=== PATIENT | female | born 1955 | race Caucasian/White ===

== ENCOUNTER 2017-10-27 12:08 | Inpatient (IN) | payer MEDICARE, MEDICAID ==
[~2017-10-27] VITALS: Ht 162.6 cm; Wt 66.8 kg
[~2017-10-27 12:08] MED LIST: ALBU8HFA PO; ALPR-624 PO; ARIP15TA3 PO; ATOR40TA PO; BUDE10.23 IH; BUPR150T8 PO; CETI-1 PO; CHOL100010 PO; CLON-527 PO; CYCL-1 PO; FLUO10CA66 PO; FURO40TA4 PO; GUAI120L55 PO; HYDR-565 PO; HYDR-569 PO; LEVO88TA28 PO; NICO-669 BC; NICO-687 TD; ONDA4TAB12 PO; ONDA4TAB6 PO; POTA20PA3 PO; QUET400T PO; RES15C PO; TRAZ-91 PO; [UNRECOGNIZED DRUG - CODE] PO; [UNRECOGNIZED DRUG - CODE] PO
[2017-10-27] MEDS ORDERED: pantoprazole IV 80 MG in normal saline 100ml IV soln 100 ML IV ONE (12:40)
[2017-10-27] MEDS ORDERED: normal saline 1000ML IV soln IV ONE (12:40)
[2017-10-27 12:53] LABS: BASOPHILS % (AUTO) 0.1 % (0-1); EOSINOPHILS # (AUTO) 0.1 X10'3 (0-0.9); EOSINOPHILS % (AUTO) 0.9 % (0-6); HEMATOCRIT 34.9 % (35.0-45.0); HEMOGLOBIN 11.7 g/dl (12.0-16.0); LYMPHOCYTES # (AUTO) 0.5 X10'3 (1.1-4.8); LYMPHOCYTES % (AUTO) 3.5 % (21-51); MEAN CORPUSCULAR HEMOGLOBIN 29.7 PG (27.0-31.0); MEAN CORPUSCULAR HGB CONC 33.5 % (33.0-36.5); MEAN CORPUSCULAR VOLUME 88.7 FL (78-98); MEAN PLATELET VOLUME 7.3 FL (7.4-10.4); MONOCYTES # (AUTO) 1.4 X10'3 (0-0.9); MONOCYTES % (AUTO) 10.6 % (2-12); NEUTROPHILS # (AUTO) 11.5 X10'3 (1.8-7.7); NEUTROPHILS % (AUTO) 84.9 % (42-75); PLATELET COUNT 167 X10'3 (140-440); RED BLOOD COUNT 3.94 X10'6 (4.20-5.60); RED CELL DISTRIBUTION WIDTH 13.8 % (11.5-14.5); WHITE BLOOD COUNT 13.6 X10'3 (4.5-11.0)
[2017-10-27 13:07] LABS: D-DIMER 0.85 MG/L FEU (0-0.50)
[2017-10-27 13:08] LABS: ALANINE AMINOTRANSFERASE 84 U/L (12-78); ALBUMIN 3.3 G/DL (3.4-5.0); ALBUMIN/GLOBULIN RATIO 0.9 (1.1-1.5); ALKALINE PHOSPHATASE 172 IU/L (46-116); ANION GAP 12 (8-16); ASPARTATE AMINO TRANSFERASE 64 U/L (10-37); BILIRUBIN,TOTAL 0.5 MG/DL (0.1-1.0); BLOOD UREA NITROGEN 26 MG/DL (7-18); CALCIUM 8.9 MG/DL (8.5-10.1); CHLORIDE 102 MMOL/L (99-107); GLUCOSE 91 MG/DL (70-104); POTASSIUM 3.8 MMOL/L (3.5-5.1); SODIUM 137 MMOL/L (135-145); TOTAL CARBON DIOXIDE 23.5 MMOL/L (24-32); TOTAL PROTEIN 6.9 G/DL (6.4-8.2); eGFR 41 ML/MIN
[2017-10-27] MEDS ORDERED: iohexol 350MG/ML 100ml bottle IV ONE (13:23)
[2017-10-27 13:29] LABS: ANISOCYTOSIS 1+; MICROCYTOSIS 1+; PLATELET ESTIMATE NORMAL; TOTAL CELLS COUNTED 100
[2017-10-27] MEDS ORDERED: furosemide 10 MG/1 ML 10ml inj IV ONE (13:55)
[2017-10-27 13:59] LABS: ETHANOL < 0.010 GM/DL (0.0-0.010)
[2017-10-27] MEDS ORDERED: guaiFENesin/codeine phos 10ml UD oral syrup PO PRN (14:20)
[2017-10-27] MEDS ORDERED: cyclobenzaprine 10mg tablet PO PRN (14:20)
[2017-10-27] MEDS ORDERED: temazepam 15mg capsule PO PRN (14:20)
[2017-10-27] MEDS ORDERED: acetaminophen 325mg tablet PO PRN (14:25)
[2017-10-27] MEDS ORDERED: magnesium 4gm in 100ml NS 100 ML IV PRN (14:25)
[2017-10-27] MEDS ORDERED: HYDROcodone/acetaminophen 5mg/325mg tablet PO PRN (14:25)
[2017-10-27] MEDS ORDERED: potassium Cl 20 mEq SR tablet PO PRN ×2 (14:25)
[2017-10-27] MEDS ORDERED: potassium Cl 40MEQ/NS 500ml 500 ML IV PRN ×2 (14:25)
[2017-10-27] MEDS ORDERED: magnesium hydroxide 30ml (MOM) UD suspension PO PRN (14:25)
[2017-10-27] MEDS ORDERED: albuterol 2.5 MG/3 ML nebule NEB PRN (14:25)
[2017-10-27] MEDS ORDERED: HYDROcodone/acetaminophen 10/325mg tab PO PRN (14:25)
[2017-10-27] MEDS ORDERED: magnesium 2GM in 50ml NS 50 ML IV PRN (14:25)
[2017-10-27] MEDS ORDERED: mag hydrox/Alum hydrox/simeth 30ml oral suspension PO PRN (14:25)
[2017-10-27] MEDS ORDERED: ondansetron/PF 4mg/2ml inj IV PRN (14:25)
[2017-10-27] MEDS ORDERED: magnesium Cl slow-release 64mg tablet PO PRN (14:25)
[2017-10-27] MEDS: ALPRAZolam 0.5mg tablet PO SCH ×3 (15:01→22:03)
[2017-10-27 17:00] VITALS: BP 92/59
[2017-10-27 18:00] VITALS: BP 91/50
[2017-10-27] MEDS ORDERED: LOPE2CAP PO (18:51)
[2017-10-27] MEDS ORDERED: GABA-532 PO (20:14)
[2017-10-27] MEDS ORDERED: ZONI100C6 PO (20:23)
[2017-10-27] MEDS ORDERED: atorvastatin 20mg tablet PO SCH (21:00)
[2017-10-27] MEDS ORDERED: gabapentin 300mg capsule PO SCH (22:00)
[2017-10-27] MEDS: quetiapine 100mg tablet PO SCH (22:03)
[2017-10-27] MEDS: pantoprazole 40 MG vial IV SCH (22:04)
[2017-10-27] MEDS: zonisamide 100mg capsule PO SCH (22:04)
[2017-10-27] MEDS: methylPREDNISolone sod succ 125mg/2ml vial IV SCH (22:05)
[2017-10-27] MEDS: furosemide 10 MG/1 ML 10ml inj IV SCH (22:08)
[2017-10-28] VITALS: BP 87/52
[2017-10-28 01:00] VITALS: BP 95/60
[2017-10-28] MEDS: methylPREDNISolone sod succ 125mg/2ml vial IV SCH ×2 (02:04→08:00)
[2017-10-28 06:15] LABS: BASOPHILS % (AUTO) 0 % (0-1); EOSINOPHILS % (AUTO) 0 % (0-6); HEMATOCRIT 32.5 % (35.0-45.0); HEMOGLOBIN 10.6 g/dl (12.0-16.0); LYMPHOCYTES # (AUTO) 0.5 X10'3 (1.1-4.8); LYMPHOCYTES % (AUTO) 5.6 % (21-51); MEAN CORPUSCULAR HEMOGLOBIN 29.2 PG (27.0-31.0); MEAN CORPUSCULAR HGB CONC 32.6 % (33.0-36.5); MEAN CORPUSCULAR VOLUME 89.4 FL (78-98); MEAN PLATELET VOLUME 8.1 FL (7.4-10.4); MONOCYTES # (AUTO) 0.1 X10'3 (0-0.9); MONOCYTES % (AUTO) 1.3 % (2-12); NEUTROPHILS % (AUTO) 93.1 % (42-75); PLATELET COUNT 172 X10'3 (140-440); RED BLOOD COUNT 3.64 X10'6 (4.20-5.60); RED CELL DISTRIBUTION WIDTH 14.3 % (11.5-14.5); WHITE BLOOD COUNT 9.7 X10'3 (4.5-11.0)
[2017-10-28 06:29] LABS: ALBUMIN 2.9 G/DL (3.4-5.0); ANION GAP 8 (8-16); BLOOD UREA NITROGEN 19 MG/DL (7-18); BUN/CREATININE RATIO 15.8 (6.6-38.0); CALCIUM 8.1 MG/DL (8.5-10.1); CHLORIDE 105 MMOL/L (99-107); GLUCOSE 172 MG/DL (70-104); MAGNESIUM 1.8 MG/DL (1.5-2.4); POTASSIUM 3.6 MMOL/L (3.5-5.1); SODIUM 139 MMOL/L (135-145); TOTAL CARBON DIOXIDE 25.9 MMOL/L (24-32); eGFR 45 ML/MIN
[2017-10-28 06:55] VITALS: BP 95/61
[2017-10-28] MEDS ORDERED: [UNRECOGNIZED DRUG - OTHER] PO SCH (08:00)
[2017-10-28] MEDS ORDERED: cholecalciferol (vitamin D) 400 unit tablet PO SCH (08:00)
[2017-10-28] MEDS ORDERED: buPROPion SR 150mg tablet PO SCH (08:00)
[2017-10-28] MEDS ORDERED: potassium Cl 20 mEq SR tablet PO SCH (08:00)
[2017-10-28] MEDS ORDERED: cetirizine 10mg tablet PO SCH (08:00)
[2017-10-28] MEDS ORDERED: nicotine 21mg patch - 24 hr TD SCH (08:00)
[2017-10-28] MEDS ORDERED: K and/or MAG REPLACEMENT MC SCH (08:00)
[2017-10-28] MEDS ORDERED: aripiprazole 5mg tablet PO SCH (08:00)
[2017-10-28] MEDS ORDERED: levoTHYROXINE 88mcg tablet PO SCH (08:00)
[2017-10-28] MEDS ORDERED: fluticasone/vilanterol 200mcg/25mcg inhaler IH SCH (08:00)
[2017-10-28] MEDS ORDERED: FLUoxetine 10mg capsule PO SCH (08:00)
[2017-10-28] MEDS ORDERED: traZODone 150mg tablet PO SCH (08:00)
[2017-10-28] MEDS: quetiapine 100mg tablet PO SCH (08:00)
[2017-10-28] MEDS: furosemide 10 MG/1 ML 10ml inj IV SCH (08:05)
[2017-10-28] MEDS: ALPRAZolam 0.5mg tablet PO SCH (08:07)
[2017-10-28] MEDS: pantoprazole 40 MG vial IV SCH (08:10)
[2017-10-28] MEDS: zonisamide 100mg capsule PO SCH (08:17)
[2017-10-28 11:20] VITALS: BP 99/57
[2017-10-28] MEDS ORDERED: PANT-47 PO (12:40)
[2017-10-28 13:14] LABS: OCCULT BLOOD STOOL POSITIVE (Neg)
[2017-11-01] MEDS ORDERED: CEPH-571 PO (12:31)
== END 2017-10-28 13:40 | disposition home or self-care (01) | DRG 378 ==
LOC: ER 12:08 → ED HOLD 14:21 → EDBEDREQ 15:45 → MED 3N 17:02
PROVIDERS: ADMIT Internal Medicine; ATTEND Internal Medicine
PROC: B32T1ZZ Computerized Tomography (CT Scan) of Left Pulmonary Artery using Low Osmolar Contrast (ICD-10-PCS; principal; 2017-10-27)
PROC: B3201ZZ Computerized Tomography (CT Scan) of Thoracic Aorta using Low Osmolar Contrast (ICD-10-PCS; 2017-10-27)
PROC: B32S1ZZ Computerized Tomography (CT Scan) of Right Pulmonary Artery using Low Osmolar Contrast (ICD-10-PCS; 2017-10-27)
DX: K92.2 Gastrointestinal hemorrhage, unspecified (principal); I13.0 Hypertensive heart and chronic kidney disease with heart failure and stage 1 through stage 4 chronic kidney disease, or unspecified chronic kidney disease; Z99.81 Dependence on supplemental oxygen; I50.9 Heart failure, unspecified; J44.1 Chronic obstructive pulmonary disease with (acute) exacerbation; E78.5 Hyperlipidemia, unspecified; E86.0 Dehydration; G89.29 Other chronic pain; M54.9 Dorsalgia, unspecified; F32.9 Major depressive disorder, single episode, unspecified; F41.9 Anxiety disorder, unspecified; I25.10 Atherosclerotic heart disease of native coronary artery without angina pectoris; K58.9 Irritable bowel syndrome, unspecified; N18.9 Chronic kidney disease, unspecified; F17.210 Nicotine dependence, cigarettes, uncomplicated; Z90.710 Acquired absence of both cervix and uterus; Z90.49 Acquired absence of other specified parts of digestive tract; Z95.0 Presence of cardiac pacemaker; Z79.899 Other long term (current) drug therapy; Z88.7 Allergy status to serum and vaccine; Z88.8 Allergy status to other drugs, medicaments and biological substances; Z87.11 Personal history of peptic ulcer disease; Z80.0 Family history of malignant neoplasm of digestive organs
CPT/HCPCS: 36415; 71010; 71275; 80048; 80053; 80320; 82272; 83735; 83880; 84484; 85025; 85379; 87070; 94640; 94760; 96365; 96375; C9113; J1940; J2270; J2930; J7030; Q9967

== ENCOUNTER 2017-12-04 20:14 | Emergency (ER) | payer OTHER, MEDICARE, MEDICAID ==
[~2017-12-04] VITALS: Ht 162.6 cm; Wt 67.3 kg
[~2017-12-04 20:14] MED LIST changes: +CEPH-571 PO; +GABA-532 PO; +LOPE2CAP PO; +PANT-47 PO; +ZONI100C6 PO
[2017-12-04 21:14] LABS: BASOPHILS % (AUTO) 0.3 % (0-1); EOSINOPHILS # (AUTO) 0.2 X10'3 (0-0.9); EOSINOPHILS % (AUTO) 2.4 % (0-6); HEMATOCRIT 43.5 % (35.0-45.0); HEMOGLOBIN 14.5 g/dl (12.0-16.0); LYMPHOCYTES # (AUTO) 1.5 X10'3 (1.1-4.8); LYMPHOCYTES % (AUTO) 16.9 % (21-51); MEAN CORPUSCULAR HEMOGLOBIN 29.7 PG (27.0-31.0); MEAN CORPUSCULAR HGB CONC 33.3 % (33.0-36.5); MEAN CORPUSCULAR VOLUME 89.1 FL (78-98); MEAN PLATELET VOLUME 7.5 FL (7.4-10.4); MONOCYTES # (AUTO) 0.9 X10'3 (0-0.9); MONOCYTES % (AUTO) 9.5 % (2-12); NEUTROPHILS # (AUTO) 6.5 X10'3 (1.8-7.7); NEUTROPHILS % (AUTO) 70.9 % (42-75); PLATELET COUNT 226 X10'3 (140-440); RED BLOOD COUNT 4.88 X10'6 (4.20-5.60); RED CELL DISTRIBUTION WIDTH 14.8 % (11.5-14.5); WHITE BLOOD COUNT 9.1 X10'3 (4.5-11.0)
[2017-12-04] MEDS ORDERED: normal saline 1000ML IV soln IVB ONE (21:20)
[2017-12-04] MEDS ORDERED: mag hydrox/Alum hydrox/simeth 30ml oral suspension PO ONE (21:20)
[2017-12-04] MEDS ORDERED: ondansetron/PF 4mg/2ml inj IV ONE (21:20)
[2017-12-04] MEDS ORDERED: LIDOcaine Viscous 15ml cup PO ONE (21:20)
[2017-12-04 21:24] LABS: PROTHROMBIN TIME 10.3 SECONDS (9.0-12.0)
[2017-12-04 21:29] LABS: ALANINE AMINOTRANSFERASE 19 U/L (12-78); ALBUMIN 3.8 G/DL (3.4-5.0); ALKALINE PHOSPHATASE 114 IU/L (46-116); ANION GAP 11 (8-16); ASPARTATE AMINO TRANSFERASE 15 U/L (10-37); BILIRUBIN,TOTAL 0.4 MG/DL (0.1-1.0); BLOOD UREA NITROGEN 22 MG/DL (7-18); BUN/CREATININE RATIO 16.9 (6.6-38.0); CALCIUM 9.2 MG/DL (8.5-10.1); CHLORIDE 105 MMOL/L (99-107); GLUCOSE 143 MG/DL (70-104); POTASSIUM 4.2 MMOL/L (3.5-5.1); SODIUM 138 MMOL/L (135-145); TOTAL CARBON DIOXIDE 21.6 MMOL/L (24-32); TOTAL PROTEIN 7.5 G/DL (6.4-8.2); eGFR 41 ML/MIN
[2017-12-04] MEDS ORDERED: acetaminophen 325mg tablet PO ONE (21:55)
[2017-12-04] MEDS ORDERED: SUCR1TAB34 PO (22:50)
[2017-12-04 23:02] LABS: TOTAL CELLS COUNTED 100
[2017-12-04 23:03] LABS: PLATELET ESTIMATE NORMAL
[2017-12-04 23:05] VITALS: BP 148/85
== END 2017-12-04 23:06 | disposition home or self-care (01) ==
LOC: ER 20:14
DX: R10.12 Left upper quadrant pain (principal); I25.10 Atherosclerotic heart disease of native coronary artery without angina pectoris; J44.9 Chronic obstructive pulmonary disease, unspecified; G89.29 Other chronic pain; I11.0 Hypertensive heart disease with heart failure; I50.9 Heart failure, unspecified; Z90.710 Acquired absence of both cervix and uterus; Z95.0 Presence of cardiac pacemaker; Z90.49 Acquired absence of other specified parts of digestive tract; Z60.2 Problems related to living alone; Z88.7 Allergy status to serum and vaccine; Z79.899 Other long term (current) drug therapy
CPT/HCPCS: 36415; 80053; 85025; 85610; 96361; 96374; 99284; J2405; J7030

== ENCOUNTER 2021-04-11 11:29 | Emergency (ER) | payer OTHER, MEDICARE, MEDICAID ==
[~2021-04-11] VITALS: Ht 162.6 cm; Wt 66.8 kg
[~2021-04-11 11:29] MED LIST changes: -ARIP15TA3 PO; +ASPI-803 PO; -BUDE10.23 IH; -BUPR150T8 PO; -CEPH-571 PO; -CLON-527 PO; -CYCL-1 PO; +FAMO40TA7 PO; -GABA-532 PO; +GABA-534 PO; -GUAI120L55 PO; -HYDR-565 PO; -HYDR-569 PO; +LEVO75TA PO; -LEVO88TA28 PO; -NICO-669 BC; -NICO-687 TD; -ONDA4TAB6 PO; -PANT-47 PO; -POTA20PA3 PO; +POTA20PA40 PO; -QUET400T PO; +QUET400T12 PO; -RES15C PO; +SUCR1TAB34 PO; -TRAZ-91 PO; +ZONI100C31 PO; -ZONI100C6 PO; -[UNRECOGNIZED DRUG - CODE] PO; -[UNRECOGNIZED DRUG - CODE] PO
[2021-04-11 11:30] VITALS: BP 129/81
[2021-04-11] MEDS ORDERED: DOXY100C43 PO (12:48)
--- NOTE | 2021-04-11 13:03 | NUR ---
PATIENT SEEN AND ASSESSED PER PROVIDER. DC INSTRUCTIONS WITH PRESCRIPTION GIVEN TO PATIENT AND VERBALIZED UNDERSTANDING.
== END 2021-04-11 13:02 | disposition home or self-care (01) ==
LOC: ER 11:29
DX: L03.114 Cellulitis of left upper limb (principal); G40.909 Epilepsy, unspecified, not intractable, without status epilepticus; I25.10 Atherosclerotic heart disease of native coronary artery without angina pectoris; I50.9 Heart failure, unspecified; I11.0 Hypertensive heart disease with heart failure; G89.29 Other chronic pain; J44.9 Chronic obstructive pulmonary disease, unspecified; K21.9 Gastro-esophageal reflux disease without esophagitis; Z87.440 Personal history of urinary (tract) infections; Z90.49 Acquired absence of other specified parts of digestive tract; Z90.710 Acquired absence of both cervix and uterus; Z95.0 Presence of cardiac pacemaker; Z88.7 Allergy status to serum and vaccine; Z88.8 Allergy status to other drugs, medicaments and biological substances; Z79.2 Long term (current) use of antibiotics; Z79.899 Other long term (current) drug therapy; Z79.82 Long term (current) use of aspirin
CPT/HCPCS: 99283

== ENCOUNTER 2021-04-23 09:35 | Emergency (ER) | payer OTHER, MEDICARE, MEDICAID ==
[~2021-04-23] VITALS: Ht 162.6 cm; Wt 68.5 kg
[2021-04-23 09:49] VITALS: BP 127/80
[2021-04-23] MEDS ORDERED: DOXY100C77 PO (10:01)
--- NOTE | 2021-04-23 10:09 | NUR ---
Patient seen and assessed by provider.
== END 2021-04-23 10:09 | disposition home or self-care (01) ==
LOC: ER 09:36
DX: L02.414 Cutaneous abscess of left upper limb (principal); I25.10 Atherosclerotic heart disease of native coronary artery without angina pectoris; I11.0 Hypertensive heart disease with heart failure; I50.9 Heart failure, unspecified; J44.9 Chronic obstructive pulmonary disease, unspecified; F41.9 Anxiety disorder, unspecified; F31.9 Bipolar disorder, unspecified; Z86.69 Personal history of other diseases of the nervous system and sense organs; Z90.49 Acquired absence of other specified parts of digestive tract; Z90.710 Acquired absence of both cervix and uterus; Z95.0 Presence of cardiac pacemaker; Z90.89 Acquired absence of other organs; Z98.890 Other specified postprocedural states; Z60.2 Problems related to living alone; Z88.7 Allergy status to serum and vaccine; Z79.82 Long term (current) use of aspirin; Z79.899 Other long term (current) drug therapy
CPT/HCPCS: 99283

== ENCOUNTER 2023-02-10 13:18 | Emergency (ER) | payer OTHER, MEDICARE, MEDICAID ==
[~2023-02-10] VITALS: Ht 162.6 cm; Wt 58.0 kg
[~2023-02-10 13:18] MED LIST changes: -QUET400T12 PO; +QUET400T13 PO; -ZONI100C31 PO; +ZONI100C87 PO
[2023-02-10] MEDS ORDERED: HYDROcodone/acetaminophen 10/325mg tab PO ONE (14:20)
[2023-02-10] MEDS ORDERED: magnesium hydroxide 30ml (MOM) UD suspension PO ONE (14:30)
[2023-02-10] MEDS ORDERED: HYDR-3973 PO ×3 (15:34→17:12)
[2023-02-10 16:21] VITALS: BP 136/72
[2023-02-10] MEDS ORDERED: mineral oil 133ml enema RC ONE (18:00)
== END 2023-02-10 16:21 | disposition home or self-care (01) ==
LOC: ER 13:19
DX: K59.03 Drug induced constipation (principal); K64.8 Other hemorrhoids; I11.9 Hypertensive heart disease without heart failure; I10 Essential (primary) hypertension; F31.9 Bipolar disorder, unspecified; G89.29 Other chronic pain; M54.9 Dorsalgia, unspecified; J44.9 Chronic obstructive pulmonary disease, unspecified; Z90.49 Acquired absence of other specified parts of digestive tract; Z98.890 Other specified postprocedural states; Z88.8 Allergy status to other drugs, medicaments and biological substances; Z88.6 Allergy status to analgesic agent; Z79.899 Other long term (current) drug therapy; Z79.1 Long term (current) use of non-steroidal anti-inflammatories (NSAID)
CPT/HCPCS: 99284

== ENCOUNTER 2023-02-13 10:41 | Emergency (ER) | payer OTHER, MEDICARE, MEDICAID ==
[~2023-02-13] VITALS: Ht 162.6 cm; Wt 54.5 kg
[~2023-02-13 10:41] MED LIST changes: +HYDR-3973 PO
[2023-02-13] MEDS ORDERED: normal saline 1000ml 1,000 ML IV ONE (12:35)
[2023-02-13 12:59] LABS: CLARITY,URINE CLOUDY (Clear); COLOR,URINE YELLOW (Yellow); GLUCOSE, URINE NEGATIVE (Neg); KETONES,URINE NEGATIVE (Neg); LEUKOCYTE ESTERASE ,URINE NEGATIVE (Neg); NITRITES, URINE NEGATIVE (Neg); OCCULT BLOOD,URINE NEGATIVE (Neg); PROTEIN,URINE NEGATIVE (Neg); UROBILINOGEN,URINE 0.2 E.U/dL (0.2-1.0)
[2023-02-13 13:05] LABS: UA COLLECTION TYPE CLN CATCH MIDSTREAM
[2023-02-13 13:07] LABS: BASOPHILS % (AUTO) 0.4 % (0-1); EOSINOPHILS % (AUTO) 0.1 % (0-6); HEMATOCRIT 30.2 % (35.0-45.0); HEMOGLOBIN 9.7 g/dl (12.0-16.0); LYMPHOCYTES # (AUTO) 1.3 X10'3 (1.1-4.8); LYMPHOCYTES % (AUTO) 18.5 % (21-51); MEAN CORPUSCULAR HEMOGLOBIN 28.4 PG (27.0-31.0); MEAN CORPUSCULAR HGB CONC 32.1 g/dL (33.0-36.5); MEAN CORPUSCULAR VOLUME 88.5 FL (78-98); MEAN PLATELET VOLUME 6.7 FL (7.4-10.4); MONOCYTES # (AUTO) 0.6 X10'3 (0-0.9); MONOCYTES % (AUTO) 8.9 % (2-12); NEUTROPHILS # (AUTO) 5.1 X10'3 (1.8-7.7); NEUTROPHILS % (AUTO) 72.1 % (42-75); PLATELET COUNT 426 X10'3 (140-440); RED BLOOD COUNT 3.41 X10'6 (4.20-5.60); WHITE BLOOD COUNT 7.1 X10'3 (4.5-11.0)
[2023-02-13 13:07] LABS: AMORPHOUS PHOSPHATES 4+
[2023-02-13 13:08] LABS: BACTERIA,URINE FEW /HPF (Neg); RBC,URINE NONE SEEN /HPF (0-2); SQUAMOUS EPITHELIAL CELL,UR FEW /LPF (FEW); WBC,URINE 0-4 /HPF (0-4)
[2023-02-13] MEDS: diatr meglu/diatrizoate 30ml oral sol.-(3 dose) bottle PO SCH ×3 (13:10→14:34)
[2023-02-13 13:24] LABS: URINE AMPHETAMINE SCREEN NEGATIVE (Neg); URINE BARBITUATE SCREEN NEGATIVE (Neg); URINE BENZODIAZEPINES SCREEN POSITIVE (Neg); URINE CANNABINOID SCREEN NEGATIVE (Neg); URINE COCAINE SCREEN NEGATIVE (Neg); URINE METHADONE SCREEN NEGATIVE (Neg); URINE OPIATE SCREEN POSITIVE (Neg); URINE PHENCYCLIDINE SCREEN NEGATIVE (Neg)
[2023-02-13 13:41] LABS: ALANINE AMINOTRANSFERASE 24 U/L (12-78); ALBUMIN 2.8 G/DL (3.4-5.0); ALBUMIN/GLOBULIN RATIO 0.7 (1.1-1.5); ALKALINE PHOSPHATASE 156 IU/L (46-116); ANION GAP 11 (8-16); ASPARTATE AMINO TRANSFERASE 21 U/L (10-37); BILIRUBIN,TOTAL 0.2 MG/DL (0.1-1.0); BLOOD UREA NITROGEN 16 MG/DL (7-18); BUN/CREATININE RATIO 14.8 (10.0-20.0); CALCIUM 8.9 MG/DL (8.5-10.1); CHLORIDE 104 MMOL/L (99-107); CREATININE 1.08 MG/DL (0.40-0.90); GLUCOSE 109 MG/DL (70-104); POTASSIUM 4.3 MMOL/L (3.5-5.1); SODIUM 139 MMOL/L (135-145); TOTAL CARBON DIOXIDE 23.9 MMOL/L (24-32); TOTAL PROTEIN 6.6 G/DL (6.4-8.2); eGFR 50 ML/MIN
[2023-02-13 13:59] LABS: ETHANOL < 0.010 GM/DL (0.0-0.010)
--- NOTE | 2023-02-13 13:59 | NUR ---
advised ct that the 2nd dose of gastrografin was just given
--- NOTE | 2023-02-13 14:40 | NUR ---
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
[2023-02-13] MEDS ORDERED: LORazepam 1 MG tablet PO ONE (16:20)
[2023-02-13] MEDS ORDERED: methylnaltrexone br 12mg/0.6ml inj***SubQ only SQ ONE (16:20)
[2023-02-13] MEDS ORDERED: POLY119P2 PO (16:23)
[2023-02-13 16:55] VITALS: BP 156/96
== END 2023-02-13 16:58 | disposition home or self-care (01) ==
LOC: ER 10:42
DX: K62.3 Rectal prolapse (principal); K59.00 Constipation, unspecified; I25.10 Atherosclerotic heart disease of native coronary artery without angina pectoris; I11.0 Hypertensive heart disease with heart failure; I50.9 Heart failure, unspecified; J44.9 Chronic obstructive pulmonary disease, unspecified; G89.29 Other chronic pain; F41.9 Anxiety disorder, unspecified; F31.9 Bipolar disorder, unspecified; Z90.49 Acquired absence of other specified parts of digestive tract; Z90.710 Acquired absence of both cervix and uterus; Z95.1 Presence of aortocoronary bypass graft; Z90.89 Acquired absence of other organs; Z98.890 Other specified postprocedural states; Z60.2 Problems related to living alone; Z88.7 Allergy status to serum and vaccine; Z88.8 Allergy status to other drugs, medicaments and biological substances; Z79.899 Other long term (current) drug therapy
CPT/HCPCS: 36415; 74176; 80053; 80305; 80320; 81001; 85025; 96372; 99285; J2212; J7030; Q9963

== ENCOUNTER 2023-10-02 13:31 | Outpatient (CLI) | payer OTHER ==
[~2023-10-02] VITALS: Ht 160 cm; Wt 60.3 kg
[~2023-10-02 13:31] MED LIST changes: -GABA-534 PO; +GABA-535 PO; +POLY119P2 PO
[2023-10-02] MEDS ORDERED: PANT40TA54 PO (14:41)
[2023-10-02] MEDS ORDERED: DOXE10CA2 PO (14:41)
[2023-10-02] MEDS ORDERED: CHLO4TAB36 PO (14:41)
[2023-10-02] MEDS ORDERED: DOXY25TA58 PO (14:48)
[2023-10-02] MEDS ORDERED: [UNRECOGNIZED DRUG - OTHER] (14:48)
[2023-10-02] MEDS ORDERED: SUCR1TAB PO (14:48)
[2023-10-02] MEDS ORDERED: MELA10TA2 PO (14:48)
[2023-10-02] MEDS ORDERED: NAPR220T67 PO (14:48)
[2023-10-02] MEDS ORDERED: MULT-1180 (14:48)
[2023-10-02] MEDS ORDERED: POTA99TA10 PO (14:48)
[2023-10-02 15:23] LABS: BASOPHILS % (AUTO) 0.4 % (0-1); EOSINOPHILS % (AUTO) 0.1 % (0-6); LYMPHOCYTES # (AUTO) 1.6 X10'3 (1.1-4.8); LYMPHOCYTES % (AUTO) 24.7 % (21-51); MEAN CORPUSCULAR HEMOGLOBIN 28.5 PG (27.0-31.0); MEAN CORPUSCULAR HGB CONC 32.5 g/dL (33.0-36.5); MEAN CORPUSCULAR VOLUME 87.6 FL (78-98); MEAN PLATELET VOLUME 7.7 FL (7.4-10.4); MONOCYTES # (AUTO) 0.5 X10'3 (0-0.9); MONOCYTES % (AUTO) 8.1 % (2-12); NEUTROPHILS # (AUTO) 4.3 X10'3 (1.8-7.7); NEUTROPHILS % (AUTO) 66.7 % (42-75); PRE OP HEMATOCRIT 38.6 % (35.0-45.0); PRE OP HEMOGLOBIN 12.5 g/dL (12.0-16.0); PRE OP PLATELET COUNT 239 X10'3 (140-440); PRE OP WHITE BLOOD COUNT 6.5 10'3 (4.8-10.8)
[2023-10-02 15:32] LABS: BILIRUBIN,URINE NEGATIVE (Neg); CLARITY,URINE CLEAR (Clear); COLOR,URINE YELLOW (Yellow); GLUCOSE, URINE NEGATIVE (Neg); KETONES,URINE NEGATIVE (Neg); LEUKOCYTE ESTERASE ,URINE NEGATIVE (Neg); NITRITES, URINE NEGATIVE (Neg); OCCULT BLOOD,URINE NEGATIVE (Neg); PH,URINE 6.5 (4.8-8.0); PRE OP PROTIME 10.7 SECONDS (9.0-12.0); PROTEIN,URINE NEGATIVE (Neg); UROBILINOGEN,URINE 0.2 E.U/dL (0.2-1.0)
[2023-10-02 15:38] LABS: ALBUMIN 3.8 G/DL (3.4-5.0); ALKALINE PHOSPHATASE 151 IU/L (46-116); BLOOD UREA NITROGEN 19 MG/DL (7-18); BUN/CREATININE RATIO 16.5 (10.0-20.0); CALCIUM 9.5 MG/DL (8.5-10.1); CHLORIDE 102 MMOL/L (99-107); CREATININE 1.15 MG/DL (0.40-0.90); PRE OP ALT 47 U/L (30-65); PRE OP ANION GAP 12 (8-16); PRE OP AST 34 U/L (10-37); PRE OP BILIRUB, TOTAL 0.3 MG/DL (0.0-1.0); PRE OP GLUCOSE 97 MG/DL (70-104); PRE OP POTASSIUM 3.8 MMOL/L (3.4-5.1); PRE OP SODIUM 137 MMOL/L (135-145); TOTAL CARBON DIOXIDE 23.3 MMOL/L (24-32); TOTAL PROTEIN 7.7 G/DL (6.4-8.2); UA COLLECTION TYPE CLN CATCH MIDSTREAM; eGFR 47 ML/MIN
[2023-10-09] MEDS ORDERED: MULT9LIQ7 PO (11:51)
[2023-10-09] MEDS ORDERED: CALC500T63 PO (11:52)
[2023-10-10] MEDS ORDERED: ringers solution, lacted 1,000 ML IV SCH (05:00)
[2023-10-10] MEDS ORDERED: famotidine 20mg tablet PO ONE (05:30)
[2023-10-10] MEDS ORDERED: cefazolin 2gm/D5W 100mL 100 ML IV ONE (05:30)
[2023-10-10] MEDS ORDERED: tranexamic acid inj. 1,000 MG in normal saline IV soln 100ML IV ONE (05:30)
[2023-10-10 10:55] VITALS: BP 127/74; PULSE 67; RESP 15; RESP 16; TEMP 98; O2SAT 97
== END 2023-10-02 23:00 | disposition home or self-care (01) ==
LOC: LAB 13:31 → PAS 10-10 10:41 → EDSTATUS 10-10 11:00
PROVIDERS: ATTEND Specialist
DX: Z01.818 Encounter for other preprocedural examination (principal); S52.122A Displaced fracture of head of left radius, initial encounter for closed fracture; E78.5 Hyperlipidemia, unspecified; J43.9 Emphysema, unspecified; E03.9 Hypothyroidism, unspecified; F31.9 Bipolar disorder, unspecified; F41.0 Panic disorder [episodic paroxysmal anxiety]; F43.10 Post-traumatic stress disorder, unspecified; Z95.0 Presence of cardiac pacemaker; Z72.89 Other problems related to lifestyle; Z87.891 Personal history of nicotine dependence; Z98.890 Other specified postprocedural states; Z90.710 Acquired absence of both cervix and uterus; Z96.611 Presence of right artificial shoulder joint; Z85.41 Personal history of malignant neoplasm of cervix uteri; Z87.19 Personal history of other diseases of the digestive system; Z86.14 Personal history of Methicillin resistant Staphylococcus aureus infection; Z88.7 Allergy status to serum and vaccine; Z79.899 Other long term (current) drug therapy; Z79.01 Long term (current) use of anticoagulants; X58.XXXA Exposure to other specified factors, initial encounter; Y93.89 Activity, other specified; Y92.89 Other specified places as the place of occurrence of the external cause; Y99.8 Other external cause status
CPT/HCPCS: 36415; 71046; 80053; 81003; 82948; 85025; 85610; 85730; 86885; 86900; 86901; 87081; 93005; J0690; J3490; J7120

== ENCOUNTER 2023-10-31 08:12 | Observation (INO) | payer OTHER ==
[2023-10-31] VITALS (25 sets, daily range): BP systolic 109–162; BP diastolic 61–93; PULSE 64–98; RESP 8–16; TEMP 97.9–98.2; O2SAT 92–98
[~2023-10-31] VITALS: Ht 160 cm; Wt 64.1 kg
[~2023-10-31 08:12] MED LIST changes: -ALBU8HFA PO; -ASPI-803 PO; +CALC500T63 PO; -CETI-1 PO; +CHLO4TAB36 PO; +DOCUMENT DATE & TIME OF BETA-BLOCKER PO ONE; +DOXE10CA2 PO; +DOXY25TA58 PO; -FAMO40TA7 PO; -HYDR-3973 PO; -LOPE2CAP PO; +MELA10TA2 PO; +MULT9LIQ7 PO; +NAPR220T67 PO; -ONDA4TAB12 PO; +PANT40TA54 PO; -POLY119P2 PO; +POTA99TA10 PO; +SUCR1TAB PO; -SUCR1TAB34 PO; +cefazolin 2gm/D5W 100mL 100 ML IV ONE; +famotidine 20mg tablet PO ONE; +ringers solution, lacted 1,000 ML IV SCH; +tranexamic acid inj. 1,000 MG in normal saline IV soln 100ML IV ONE
[2023-10-31] MEDS ORDERED: meperidine/PF 25mg/ml syringe IV PRN ×3 (09:15)
[2023-10-31] MEDS ORDERED: morphine 4 MG/ML inj SYRINge IV PRN (09:15)
[2023-10-31] MEDS ORDERED: ondansetron/PF 4mg/2ml inj IV PRN ×2 (09:15→10:00)
[2023-10-31] MEDS ORDERED: enalaprilat dihydrate 2.5mg/2ml vial IV PRN (09:15)
[2023-10-31] MEDS ORDERED: ringers solution, lacted 1,000 ML IV SCH (09:15)
[2023-10-31] MEDS ORDERED: labetalol 20mg/4ml (5mg/ml) syringe IV PRN (09:15)
[2023-10-31] MEDS ORDERED: proCHLORperazine 10 MG/2 ml inj IV PRN (09:15)
[2023-10-31] MEDS ORDERED: morphine 2 MG/ML inj. syringe IV PRN (09:15)
[2023-10-31] MEDS ORDERED: vancomycin 1,000mg inj ONE (09:56)
[2023-10-31] MEDS ORDERED: naloxone 0.4 mg/ml inj IV PRN (10:00)
[2023-10-31] MEDS ORDERED: magnesium hydroxide 30ml (MOM) UD suspension PO PRN (10:00)
[2023-10-31] MEDS ORDERED: acetaminophen 325mg tablet PO PRN (10:00)
[2023-10-31] MEDS ORDERED: bisacodyl 10mg suppository rectal RC PRN (10:00)
[2023-10-31] MEDS ORDERED: HYDROcodone/acetaminophen 10/325mg tab PO PRN ×2 (10:00)
[2023-10-31 10:02] LABS: BASOPHILS % (AUTO) 0.3 % (0-1); EOSINOPHILS % (AUTO) 0.1 % (0-6); LYMPHOCYTES # (AUTO) 1.2 X10'3 (1.1-4.8); MEAN CORPUSCULAR HEMOGLOBIN 29.1 PG (27.0-31.0); MEAN CORPUSCULAR HGB CONC 32.3 g/dL (33.0-36.5); MEAN CORPUSCULAR VOLUME 90.2 FL (78-98); MEAN PLATELET VOLUME 7.9 FL (7.4-10.4); MONOCYTES # (AUTO) 0.6 X10'3 (0-0.9); MONOCYTES % (AUTO) 8.8 % (2-12); NEUTROPHILS # (AUTO) 4.8 X10'3 (1.8-7.7); NEUTROPHILS % (AUTO) 72.8 % (42-75); PRE OP HEMATOCRIT 35.2 % (35.0-45.0); PRE OP HEMOGLOBIN 11.4 g/dL (12.0-16.0); PRE OP PLATELET COUNT 210 X10'3 (140-440); PRE OP WHITE BLOOD COUNT 6.6 10'3 (4.8-10.8)
[2023-10-31 10:03] LABS: PRE OP PARTIAL THROMB. TIME 31 SECONDS (22-32); PROTHROMBIN TIME 10.3 SECONDS (9.0-12.0)
[2023-10-31 10:05] LABS: ALBUMIN 3.2 G/DL (3.4-5.0); ALBUMIN/GLOBULIN RATIO 0.9 (1.1-1.5); ALKALINE PHOSPHATASE 148 IU/L (46-116); BLOOD UREA NITROGEN 21 MG/DL (7-18); BUN/CREATININE RATIO 16.7 (10.0-20.0); CHLORIDE 106 MMOL/L (99-107); CREATININE 1.26 MG/DL (0.40-0.90); PRE OP ALT 43 U/L (30-65); PRE OP ANION GAP 7 (8-16); PRE OP AST 29 U/L (10-37); PRE OP BILIRUB, TOTAL 0.2 MG/DL (0.0-1.0); PRE OP GLUCOSE 95 MG/DL (70-104); PRE OP POTASSIUM 4.5 MMOL/L (3.4-5.1); PRE OP SODIUM 138 MMOL/L (135-145); TOTAL CARBON DIOXIDE 25.2 MMOL/L (24-32); TOTAL PROTEIN 6.8 G/DL (6.4-8.2); eCRCL 35 ML/MIN; eGFR 42 ML/MIN
[2023-10-31] MEDS ORDERED: MIDAZolam 1 MG/ML 5ML VIAL ONE (10:10)
[2023-10-31] MEDS ORDERED: fentaNYL/PF 50MCG/1 ML 2ML syringe ONE (10:10)
[2023-10-31] MEDS ORDERED: ondansetron/PF 4mg/2ml inj ONE (10:22)
[2023-10-31] MEDS ORDERED: sevoflurane 250ml liquid IH ONE (10:22)
[2023-10-31 10:42] LABS: BILIRUBIN,URINE NEGATIVE (Neg); CLARITY,URINE CLEAR (Clear); COLOR,URINE YELLOW (Yellow); GLUCOSE, URINE NEGATIVE (Neg); KETONES,URINE NEGATIVE (Neg); LEUKOCYTE ESTERASE ,URINE NEGATIVE (Neg); NITRITES, URINE NEGATIVE (Neg); OCCULT BLOOD,URINE NEGATIVE (Neg); PROTEIN,URINE NEGATIVE (Neg); UROBILINOGEN,URINE 0.2 E.U/dL (0.2-1.0)
[2023-10-31 10:45] LABS: UA COLLECTION TYPE CLN CATCH MIDSTREAM
[2023-10-31] MEDS ORDERED: propofol inj 20 ML IV ONE (10:53)
[2023-10-31] MEDS ORDERED: dexamethasone sod phosphate 4mg/ml inj. ONE (10:53)
[2023-10-31] MEDS ORDERED: LIDOcaine 1%/PF 5ML 10 MG/ML VIAL ONE (10:54)
[2023-10-31] MEDS ORDERED: ROPIVAcaine 0.5% (5mg/ml) 30ml vial ONE (10:54)
[2023-10-31] MEDS ORDERED: methylene blue (5mg/ml) 50mg/10ml ampul IV ONE ×2 (11:38→14:53)
[2023-10-31] MEDS ORDERED: vancomycin 1,000mg inj IVT ONE (11:51)
[2023-10-31] MEDS ORDERED: morphine 4 MG/ML inj SYRINge IV ONE (12:50)
[2023-10-31] MEDS ORDERED: gelatin sponge, absorbable (Gelfoam 100) sponge TP ONE ×2 (13:00→13:03)
[2023-10-31] MEDS ORDERED: ceFAZolin/D5W- 1GM premix 50 ML IV SCH (16:00)
[2023-10-31] MEDS: potassium cl 20mEq in 1/2 NS 1,000 ML IV SCH ×2 (16:53→23:20)
[2023-10-31] MEDS: ceFAZolin/D5W- 1GM premix 50 ML IV SCH (20:01)
[2023-10-31] MEDS ORDERED: doxepin 10mg capsule PO SCH (23:37)
[2023-10-31] MEDS ORDERED: Melatonin 3mg tablet PO SCH (23:39)
[2023-10-31] MEDS ORDERED: atorvastatin 20mg tablet PO SCH (23:41)
[2023-11-01] MEDS: quetiapine 100mg tablet PO SCH ×2 (00:23→07:49)
[2023-11-01] MEDS ORDERED: chlorpheniramine 4mg tablet PO SCH ×2 (01:30)
[2023-11-01 02:00] VITALS: BP 132/72; PULSE 86; RESP 15; TEMP 98.3; O2SAT 99
[2023-11-01] MEDS: sucralfate 1 gm tablet PO SCH ×3 (02:00→14:00)
[2023-11-01] MEDS: potassium cl 20mEq in 1/2 NS 1,000 ML IV SCH (03:21)
[2023-11-01] MEDS: ceFAZolin/D5W- 1GM premix 50 ML IV SCH (03:21)
[2023-11-01 06:00] VITALS: BP 137/63; PULSE 82; RESP 16; TEMP 98.1; O2SAT 96
[2023-11-01 06:00] LABS: BASOPHILS % (AUTO) 0.2 % (0-1); EOSINOPHILS % (AUTO) 0 % (0-6); HEMOGLOBIN 10.3 g/dl (12.0-16.0); LYMPHOCYTES # (AUTO) 1.5 X10'3 (1.1-4.8); LYMPHOCYTES % (AUTO) 17.1 % (21-51); MEAN CORPUSCULAR HEMOGLOBIN 28.8 PG (27.0-31.0); MEAN CORPUSCULAR HGB CONC 32.2 g/dL (33.0-36.5); MEAN CORPUSCULAR VOLUME 89.6 FL (78-98); MEAN PLATELET VOLUME 7.4 FL (7.4-10.4); MONOCYTES # (AUTO) 1.1 X10'3 (0-0.9); MONOCYTES % (AUTO) 12.5 % (2-12); NEUTROPHILS # (AUTO) 6.2 X10'3 (1.8-7.7); NEUTROPHILS % (AUTO) 70.2 % (42-75); PLATELET COUNT 182 X10'3 (140-440); RED BLOOD COUNT 3.57 X10'6 (4.20-5.60); RED CELL DISTRIBUTION WIDTH 16.1 % (11.5-14.5); WHITE BLOOD COUNT 8.8 X10'3 (4.5-11.0)
[2023-11-01 06:26] LABS: ANION GAP 7 (8-16); CHLORIDE 105 MMOL/L (99-107); SODIUM 139 MMOL/L (135-145); TOTAL CARBON DIOXIDE 26.8 MMOL/L (24-32)
[2023-11-01] MEDS ORDERED: levoTHYROXINE 75mcg tablet PO SCH (07:00)
[2023-11-01] MEDS: ALPRAZolam 0.5mg tablet PO SCH ×2 (07:49→12:21)
[2023-11-01] MEDS ORDERED: non-formulary drug (Potassium Gluconate 99 MG) PO SCH (08:00)
[2023-11-01] MEDS ORDERED: pantoprazole 40mg Tablet.DR PO SCH (08:00)
[2023-11-01] MEDS ORDERED: zonisamide 100mg capsule PO SCH (08:00)
[2023-11-01] MEDS ORDERED: calcium carbonate 500mg tablet PO SCH (08:00)
[2023-11-01] MEDS ORDERED: naproxen sodium 220mg tablet PO SCH (08:00)
[2023-11-01] MEDS ORDERED: potassium Cl 20 mEq SR tablet PO SCH (08:00)
[2023-11-01] MEDS ORDERED: cholecalciferol (vitamin D3) 1,000 unit (25mcg) tablet PO SCH (08:00)
[2023-11-01] MEDS ORDERED: furosemide 40mg tablet PO SCH (08:00)
[2023-11-01] MEDS ORDERED: FLUoxetine 10mg capsule PO SCH (08:00)
[2023-11-01 10:00] VITALS: BP 98/62; PULSE 94; RESP 20; TEMP 98.1; O2SAT 97
[2023-11-01 11:00] VITALS: RESP 18; O2SAT 97
[2023-11-01] MEDS ORDERED: oxyCODONE IR 5mg (immed. release) tablet PO PRN ×2 (11:15)
[2023-11-01] MEDS ORDERED: OXYC-658 PO (13:19)
[2023-11-01] MEDS ORDERED: NALO4SPR BOTHNARES ×2 (13:19)
[2023-11-01 13:26] VITALS: RESP 18
[2023-11-01] MEDS ORDERED: gabapentin 400mg capsule PO SCH (21:00)
[2023-11-01] MEDS ORDERED: non-formulary drug (Doxylamine Succinate (Unisom) 1 TAB) PO SCH (21:00)
[2023-11-01] MEDS ORDERED: MULTIVIT-MIN/FERROUS GLUCONATE 9 MG/15 ML LIQUID PO SCH (21:09)
[2023-11-02] MEDS ORDERED: NALO4SPR (11:12)
== END 2023-11-01 14:27 | disposition home or self-care (01) ==
LOC: PAS 08:12 → ORTHO 4S 09:59
PROVIDERS: ADMIT Specialist; ATTEND Specialist
DX: M25.322 Other instability, left elbow (principal); S42.452 Displaced fracture of lateral condyle of left humerus; E78.5 Hyperlipidemia, unspecified; F31.9 Bipolar disorder, unspecified; E03.9 Hypothyroidism, unspecified; F43.10 Post-traumatic stress disorder, unspecified; J43.9 Emphysema, unspecified; Z95.0 Presence of cardiac pacemaker; Z87.891 Personal history of nicotine dependence; Z79.899 Other long term (current) drug therapy; Z96.612 Presence of left artificial shoulder joint
CPT/HCPCS: 24363; 36415; 64718; 73080; 76000; 80051; 80053; 81003; 82948; 85025; 85610; 85730; 86885; 86900; 86901; 87081; 96365; 96366; 96375; 97116; 97161; 97530; A6222; C1713; C1776; G0378; J0690; J1100; J2250; J2270; J2405; J2704; J2795; J3010; J3370; J3480; J3490; J7120; Q9968; A4215; A4615; A4618; A6253; A6449; A6455; A7000